=== PATIENT | female | born 1990 | race Caucasian/White ===

== ENCOUNTER 2016-06-24 12:37 | Emergency (ER) | payer OTHER ==
[2016-06-24] MEDS ORDERED: FAMOTIDINE 20 MG TABLET PO ONE (12:45)
[2016-06-24] MEDS ORDERED: DIPHENHYDRAMINE HCL 50 MG CAPSULE PO ONE (12:45)
[2016-06-24] MEDS ORDERED: PREDNISONE 20 MG TABLET PO ONE (12:48)
--- NOTE | 2016-06-24 12:48 | ER Document Report ---
ED Medical Screen (RME) - General Stated Complaint: THROAT,LIPS SWELLING, RASH Mode of Arrival: Ambulatory Information source: Patient Notes: Patient complains of rash, and facial swelling that started this morning. Patient states symptoms have gradually started to worsen throughout the day. hx: Asthma I have greeted and performed a rapid initial assessment of this patient. A comprehensive ED assessment and evaluation of the patient, analysis of test results and completion of the medical decision making process will be conducted by additional ED providers. - Related Data Allergies/Adverse Reactions: No Known Allergies Allergy (Unverified 06/24/16 12:43) Physical Exam - Vital signs Vitals: Temp Pulse Resp BP Pulse Ox 98.1 F 99 23 H 103/57 L 100 06/24/16 12:41 06/24/16 12:41 06/24/16 12:41 06/24/16 12:41 06/24/16 12:41 - General General appearance: Appears well Notes: no Angioedema, pt with upper airway tranmitted noises Course - Re-evaluation Re-evalutation: 06/24/16 12:[address] Franklin regarding patient presentation and status, recommends giving patient a single dose of steroid, in addition to the Benadryl and Pepcid. - Vital Signs Vital signs: Temp Pulse Resp BP Pulse Ox 98.1 F 99 23 H 103/57 L 100 06/24/16 12:41 06/24/16 12:41 06/24/16 12:41 06/24/16 12:41 06/24/16 12:41
--- NOTE | 2016-06-24 14:17 | ER Document Report ---
ED Allergic Reaction - General Chief Complaint: Allergic Reaction Stated Complaint: THROAT,LIPS SWELLING, RASH Mode of Arrival: Ambulatory Information source: Patient TRAVEL OUTSIDE OF THE [place] IN LAST 30 DAYS: No - HPI Onset: This morning Severity: Mild Pain Level: Denies Identified cause: No Food exposure: Other - Fish last night, but hasn't had problem previously. Similar symptoms previously: No Recently seen / treated by doctor: No Notes: Onset this morning of itching on face, but had no obvious exposure directly, but reports ate fish last night. Currently 19 weeks , no vag discharge or bleeding or abd pain - Related Data Allergies/Adverse Reactions: No Known Allergies Allergy (Unverified 06/24/16 12:43) Past Medical History - General Information source: Patient - Social History Smoking Status: Never Smoker Chew tobacco use (# tins/day): No Frequency of alcohol use: None Drug Abuse: None Family History: Reviewed & Not Pertinent Patient has suicidal ideation: No Patient has homicidal ideation: No Renal/ Medical History: Denies: Hx Peritoneal Dialysis Review of Systems - Review of Systems Constitutional: No symptoms reported EENT: Difficulty swallowing, Throat swelling. denies: Eye discharge, Ear pain, Nose pain, Nose discharge, Throat pain, Mouth swelling Cardiovascular: No symptoms reported Respiratory: No symptoms reported Genitourinary: No symptoms reported Female Genitourinary: No symptoms reported. denies: Heavy/abnormal periods, Irregular period, Vaginal discharge, Vaginal bleeding Musculoskeletal: No symptoms reported Skin: Rash Hematologic/Lymphatic: No symptoms reported Neurological/Psychological: No symptoms reported -: Yes All other systems reviewed and negative Physical Exam - Vital signs Vitals: Temp Pulse Resp BP Pulse Ox 98.1 F 99 23 H 103/57 L 100 06/24/16 12:41 06/24/16 12:41 06/24/16 12:41 06/24/16 12:41 06/24/16 12:41 Interpretation: Normal - General General appearance: Appears well, Alert - HEENT Head: Normocephalic, Atraumatic Eyes: Normal Pupils: PERRL - Respiratory Respiratory status: No respiratory distress Chest status: Nontender Breath sounds: Normal Chest palpation: Normal - Cardiovascular Rhythm: Regular Heart sounds: Normal auscultation Murmur: No - Abdominal Inspection: Normal Distension: No distension Bowel sounds: Normal Tenderness: Nontender Organomegaly: No organomegaly - Back Back: Normal, Nontender - Extremities General upper extremity: Normal inspection, Nontender, Normal color, Normal ROM , Normal temperature General lower extremity: Normal inspection, Nontender, Normal color, Normal ROM , Normal temperature, Normal weight bearing. No: Manav's sign - Neurological Neuro grossly intact: Yes Cognition: Normal Orientation: AAOx4 Dee Coma Scale Eye Opening: Spontaneous [place] Coma Scale Verbal: Oriented Dee Coma Scale Motor: Obeys Commands Dee Coma Scale Total: 15 Speech: Normal Motor strength normal: LUE, RUE, LLE, RLE Sensory: Normal - Psychological Associated symptoms: Normal affect, Normal mood - Skin Skin Temperature: Warm - Pt seen after pepcid, benadryl, prednisone with no residual rash or symptoms. Skin Moisture: Dry Skin Color: Normal Course - Re-evaluation Re-evalutation: 06/24/16 14:32 FHT 140's. Pt with stable vitals, no risk to or resp compromise. OP clear. No anaphylaxis. - Vital Signs Vital signs: Temp Pulse Resp BP Pulse Ox 98.1 F 99 23 H 103/57 L 100 06/24/16 12:41 06/24/16 12:41 06/24/16 12:41 06/24/16 12:41 06/24/16 12:41 Discharge - Discharge Clinical Impression: Allergic reaction Condition: Stable Disposition: HOME, SELF-CARE Instructions: Acute Allergic Reaction ([facility]) Additional Instructions: Take benadryl as directed. Take prednisone steroid only if the itching and rash continues. Prescriptions: Prednisone [Deltasone 10 mg Tablet] 10 mg PO ASDIR PRN #21 tablet PRN Reason: Forms: Return to Work
[2016-06-24 14:52] VITALS: BP 100/57
== END 2016-06-24 14:54 | disposition home or self-care (01) ==
LOC: ER 12:37
DX: O9A.212 Injury, poisoning and certain other consequences of external causes complicating pregnancy, second trimester (principal); T78.40XA Allergy, unspecified, initial encounter; L29.8 Other pruritus; R13.10 Dysphagia, unspecified; X58.XXXA Exposure to other specified factors, initial encounter; Z3A.19 19 weeks gestation of pregnancy
CPT/HCPCS: 99283; J7512